=== PATIENT | female | born 1985 | race Caucasian/White ===

== ENCOUNTER 2019-04-15 00:22 | Emergency (ER) | payer SELFPAY ==
[~2019-04-15] VITALS: Ht 162.6 cm; Wt 47.6 kg
[2019-04-15 00:45] VITALS: BP 117/67
--- NOTE | 2019-04-15 00:48 | NUR ---
TO BED # 02 AMBULATORY
--- NOTE | 2019-04-15 01:00 | NUR ---
34 YO F BIB SELF C/O RIGHT SIDE FACIAL PAIN X 3 DAYS. OBVIOUS SWELLING NOTED TO RIGHT SIDE WITH SCABBED ABSCESS NOTED. PT STATES SHE DOES NOT KNOW HOW IT BECAME THAT WAY. DENIES FEVER, [place], [place]. STATES SHE TOOK NORCO AT HOME WITH NO RELIEF. PMH-- DENIES
[2019-04-15] MEDS: SULFAMETH/TRIMETH DS 800/160MG 1 TAB PO ONE (01:53)
[2019-04-15] MEDS: CEPHALEXIN 500 MG CAP PO ONE (01:53)
[2019-04-15] MEDS: IBUPROFEN 800 MG TAB PO ONE (02:49)
[2019-04-15 02:50] VITALS: BP 120/60
--- NOTE | 2019-04-15 02:50 | NUR ---
Patient discharged with v/s stable. Written and verbal after care instructions given and explained. Patient alert, oriented and verbalized understanding of instructions. Ambulatory with steady gait. All questions addressed prior to discharge. ID band removed. Patient advised to follow up with PMD. Rx of Keflex, Bactrim and Motrin given. Patient educated on indication of medication including possible reaction and side effects. Opportunity to ask questions provided and answered.
== END 2019-04-15 02:50 | disposition home or self-care (01) ==
LOC: MED 00:22
DX: L03.211 Cellulitis of face (principal)
CPT/HCPCS: 99284